=== PATIENT | female | born 1970 | race Caucasian/White ===

== ENCOUNTER → 2022-11-04 | Outpatient (CLI) | payer BC ==
[~2022-11-04] MED LIST: ERYT-88 PO; LISI10TA22 PO; PROAAER10 INH
== END ==
LOC: M RAD 12:38
PROVIDERS: ATTEND Nurse Practitioner
DX: D38.1 Neoplasm of uncertain behavior of trachea, bronchus and lung (principal)

== ENCOUNTER → 2023-03-01 | Outpatient (CLI) | payer BC | LOC: M PLAIMG 12:56 | PROVIDERS: ATTEND Nurse Practitioner Adult Health | DX: D38.1 Neoplasm of uncertain behavior of trachea, bronchus and lung (principal); R91.1 Solitary pulmonary nodule; R59.9 Enlarged lymph nodes, unspecified; K76.0 Fatty (change of) liver, not elsewhere classified ==

== ENCOUNTER → 2023-08-09 | Outpatient (CLI) | payer BC | LOC: M RAD 08:59 | PROVIDERS: ATTEND Nurse Practitioner | DX: J06.9 Acute upper respiratory infection, unspecified (principal) ==

== ENCOUNTER → 2024-09-13 | Outpatient (CLI) | payer OTHER | LOC: M EKG 12:24 | PROVIDERS: ATTEND Internal Medicine Cardiovascular Disease | DX: I45.2 Bifascicular block (principal) ==

== ENCOUNTER → 2024-10-24 | Outpatient (CLI) | payer BC, OTHER | LOC: M CARPUL 14:42 | PROVIDERS: ATTEND Internal Medicine Cardiovascular Disease | DX: R06.02 Shortness of breath (principal); I10 Essential (primary) hypertension; R94.31 Abnormal electrocardiogram [ECG] [EKG] ==

== ENCOUNTER → 2025-04-24 | Outpatient (CLI) | payer OTHER | LOC: M WHC 13:09 | PROVIDERS: ATTEND Physician Assistant Medical | DX: Z12.31 Encounter for screening mammogram for malignant neoplasm of breast (principal); Q78.2 Osteopetrosis; R92.313 Mammographic fatty tissue density, bilateral breasts ==

== ENCOUNTER 2025-05-15 19:33 | Emergency (ER) | payer OTHER, MEDICARE ==
[~2025-05-15] VITALS: Ht 167.6 cm; Wt 104.5 kg
[2025-05-15] MEDS: TRANEXAMIC ACID 100 MG/ML 10ML VIAL XX ONE (22:30)
[2025-05-15 22:47] VITALS: BP 170/91; TEMP 98.5; O2SAT 94
== END 2025-05-15 22:48 | disposition home or self-care (01) ==
LOC: M ED 19:33
DX: T81.89XA Other complications of procedures, not elsewhere classified, initial encounter (principal); K08.89 Other specified disorders of teeth and supporting structures; Z88.0 Allergy status to penicillin; Z88.1 Allergy status to other antibiotic agents; Z79.2 Long term (current) use of antibiotics; Z79.51 Long term (current) use of inhaled steroids; Z79.899 Other long term (current) drug therapy

== ENCOUNTER → 2025-05-22 | Outpatient (CLI) | payer MEDICARE, MEDICAID | LOC: M PLAIMG 14:43 | PROVIDERS: ATTEND Physician Assistant | DX: M25.562 Pain in left knee (principal); M17.12 Unilateral primary osteoarthritis, left knee ==